=== PATIENT | male | born 2005 | race Caucasian/White ===

== ENCOUNTER 2024-10-14 15:13 | Emergency (ER) | payer OTHER ==
[~2024-10-14] VITALS: Ht 185.4 cm; Wt 77.1 kg
[2024-10-14 15:17] VITALS: BP 163/103
== END 2024-10-14 16:21 | disposition home or self-care (01) ==
LOC: ER 15:13
DX: S37.33XA Laceration of urethra, initial encounter (principal); X58.XXXA Exposure to other specified factors, initial encounter
CPT/HCPCS: 99282